=== PATIENT | female | born 2000 | race African-American/Black ===

== ENCOUNTER 2024-04-24 18:48 | Emergency (ER) | payer OTHER, SELFPAY ==
[2024-04-24 19:17] VITALS: BP 137/44; PULSE 83; RESP 16; TEMP 37.3; O2SAT 97; BMI 28.8
--- NOTE | 2024-04-24 19:25 | ED.GENADULT ---
HPI - General Adult General Chief complaint: Skin/Abscess/Foreign Body Stated complaint: left armpit abscess Time Seen by Provider: 04/24/24 23:18 Source: patient Mode of arrival: ambulatory Limitations: no limitations History of Present Illness ED Provider: ABHISHEK SULLIVAN narrative: 24 yo female with no sig PMH here with c/o L axillary pain since Wednesday. No fevers but has headache. She denies prior hx of boils or MRSA. She states it hurts to move the arm. She has not tried to drain it. She has not been on antibiotics. This has never happened to her before. MD complaint: abscess Onset (ago): day(s) (3) Location: left and upper extremity Radiation: non-radiation Severity: severe Quality: aching Pain Consistency: constant Relieving factors: immobilization Exacerbating factors: movement Associated symptoms: headaches Treatments prior to arrival: none Related Data Previous Rx's ?Medication ?Instructions ?Recorded cephalexin 500 mg capsule 500 mg PO QID 7 days #28 caps 04/25/24 cyclobenzaprine 10 mg tablet 10 mg PO TID PRN muscle spasm #20 04/25/24 tabs doxycycline hyclate 100 mg capsule 100 mg PO BID 7 days #14 caps 04/25/24 ibuprofen 600 mg tablet 600 mg PO Q6H PRN pain #30 tabs 04/25/24 Allergies Allergy/AdvReac Type Severity Reaction Status Date / Time No Known Allergies Allergy Verified 04/24/24 19:25 Review of Systems Review of Systems: Constitutional : No Fever, No Chills ENT/Mouth : No sore throat, No Rhinorrhea Eyes: No Eye Pain, No Swelling, No Redness Cardiovascular : No Chest Pain, No SOB Respiratory : No Cough, No Sputum Gastrointestinal : No Nausea, No Vomiting, No Diarrhea, No abdominal Pain Genitourinary : No Dysuria, No Hematuria Musculoskeletal : No joint pain, No Myalgias, No Joint Swelling Skin : No Skin abscess, no skin rash Neuro : No Weakness, No Numbness, pos Headache Psych : No Anxiety, No Depression Heme/Lymph: No Bruising, No Bleeding,No Lymphadenopathy Endocrine : No Polyuria, No Polydipsia All other systems reviewed and are negative PMFSH Past Medical History Attestation statement: The following information was validated with the patient. Medical History (Updated 04/25/24 @ 00:36 by Nathalia Ryan DO) No pertinent past medical history Social History Social History (Updated 04/24/24 @ 23:58 by Nathalia Ryan DO) Patient Tobacco Use Status: Never used Tobacco Advance Directives: No Advance Directives Information Provided: No Do you have a plan to hurt others: No Plan Physical Exam ED Vital Signs: Vital Signs - 24 hr 04/24/24 19:17 Temperature 99.1 F Pulse Rate 83 Respiratory Rate 16 Blood Pressure 137/44 L Pulse Oximetry 97 Oxygen Delivery Method Room Air BMI result Body Mass Index 28.8 Appearance: Alert. Oriented X3. No acute distress. Eyes: Pupils equal, round and reactive to light. ENT: Pharynx normal. Neck: Normal inspection. Neck supple. CVS: Normal heart rate and rhythm. Pulses normal. Respiratory: No respiratory distress. Breath sounds normal. Abdomen: Soft and nontender. Skin: Skin warm and dry. Normal skin color. Normal skin turgor. Extremities: No lower extremity edema. L axilla 6cm large fluctuant abscess Neuro: Oriented X 3. No motor deficit. No sensory deficit. Course Course Course Narrative: RME performed by Sunni Lyle PA-C. Patient is a 24 year old assigned female at presenting to the emergency department with a left axillary abscess. Patient states over the last few days she has had a left armpit abscess that is getting worse. Detailed physical exam and review of systems are deferred to the garden labourer. Labs ordered. Patient placed back in the waiting room pending room availability and results. Medications Administered Discontinued Medications Generic Name Dose Route Start Last Admin Trade Name Freq PRN Reason Stop Dose Admin Cephalexin HCl 500 mg 04/24/24 23:35 04/24/24 23:56 Cephalexin 500 Mg Capsule PO 04/24/24 23:36 500 mg ONCE ONE Administration Doxycycline Monohydrate 100 mg 04/24/24 23:35 04/25/24 00:00 Doxycycline Monohydrate 100 Mg Capsule PO 04/24/24 23:36 100 mg ONCE ONE Administration Lidocaine HCl 5 ml 04/24/24 23:21 04/24/24 23:33 Lidocaine Hcl 1 % Mpf 5 Ml Vial SUBCUT 04/24/24 23:22 5 ml ONCE ONE Administration Lidocaine HCl 1 appl 04/24/24 23:35 04/24/24 23:56 Lidocaine 4 % Cream Kit TOPICAL 04/24/24 23:36 1 appl ONCE ONE Administration Protocol Procedures Abscess I/D Site: upper extremity and other (axilla ) Side (if applicable): left Local Anesthetic: lidocaine 1% Amount of anesthesia used (mL): 5 Technique: incised with blade Amount of fluid expressed (mL): 8 Sent for culture/gram staining?: No Irrigation: Yes Packing used?: [email or web address] Medical Decision Making Medical Decision Making [facility] Narrative: 24 yo female with no sig PMH here with c/o L axillary abscess at this time will need basic labs, I+D of abscess and start on oral antibiotics. She denies hx of diabetes and is overall not toxic. Differential Diagnosis Differential Diagnoses: The differential diagnosis associated with the presentation includes abscess Admission/Observation Consideration of admission/observation: Escalation of care including admission/observation considered VS stable, able to tolerate PO, can be DC home with PO abx Lab Data [facility] Lab Attestation statement: I reviewed the patient's lab results. 04/24/24 19:39 04/24/24 19:39 Labs: Lab Results 04/24/24 Range/Units 19:39 WBC 9.5 (4.8-10.8) X10*3/uL RBC 4.54 (4.20-5.50) X10*6/uL Hgb 11.2 L (12.0-16.0) g/dl Hct 34.6 L (37.0-47.0) % MCV 76.2 L (80.0-98.0) fL MCH 24.7 L (27.0-33.0) pg MCHC 32.4 (31.0-35.0) g/dl RDW 13.5 (11.0-16.0) % Plt Count 312 (160-400) X10*3/uL MPV 10.2 (9.4-12.3) fL Immature Gran % (Auto) 0.2 (0.0-0.4) % Neut % (Auto) 59.1 (45-73) % Lymph % (Auto) 33.0 (20-40) % [place] % (Auto) 5.7 (2-11) % Eos % (Auto) 1.4 (0-4) % Baso % (Auto) 0.6 (0-2) % Lymph # (Auto) 3.1 (1.2-4.9) X10*3/uL [place] # (Auto) 0.5 (0.1-1.2) X10*3/uL Eos # (Auto) 0.1 (0.0-0.4) X10*3/uL Baso # (Auto) 0.1 (0.0-0.2) X10*3/uL Abs Immat Gran (auto) 0.02 (0.00-0.03) X10*3/uL Absolute Neuts (auto) 5.6 (2.0-8.3) x10*3/uL Absolute Nucleated RBC 0.000 (0.0-0.012) X10*3/uL Nucleated RBC % (auto) 0.0 (0.0-0.2) /100WBC ESR 25 H (0-20) MM/HR Sodium 139 (135-145) mmol/L Potassium 3.7 (3.3-5.1) mmol/L Chloride 105 (96-108) mmol/L Carbon Dioxide 28 (22-29) mmol/L Anion Gap 10 L (12-20) BUN 8 L (9-16) mg/dL Creatinine 0.85 (0.5-1.4) mg/dL Estim Creat Clear Calc 100.2 Estimated GFR > 60 Random Glucose 116 H (60-115) mg/dL Calcium 9.4 (8.4-10.2) mg/dL Magnesium 2.1 (1.6-2.6) mg/dL Total Bilirubin 0.4 (0.0-1.0) mg/dL AST 20 (5-31) U/L ALT 17 (0-31) U/L Alkaline Phosphatase 56 (39-117) U/L C-Reactive Protein 2.49 H (< or = 0.50) mg/dL Total Protein 8.1 H (6.5-8.0) g/dL Albumin 4.3 (3.5-5.0) g/dL Prescription Management I considered prescription management with: Pain Medication and Antibiotic Discharge Plan Discharge Clinical Impression: Abscess of skin or subcutaneous tissue Qualifiers: Site of cutaneous abscess: extremity Site of cutaneous abscess of extremity: axilla Laterality: left Qualified Code(s): L02.412 - Cutaneous abscess of left axilla Patient Disposition: Home, Self-Care Instructions: Abscess (ED), Abscess Incision and Drainage (DC) Additional Instructions: return for worsening pain, bleeding, fevers, or any other concerns packing out in 48 hours it is okay if it falls out early please return for any worsening symptoms - change dressing every day Prescriptions: New cyclobenzaprine 10 mg tablet 10 mg PO TID PRN (Reason: muscle spasm) Qty: 20 0RF doxycycline hyclate 100 mg capsule 100 mg PO BID 7 Days Qty: 14 0RF cephalexin 500 mg capsule 500 mg PO QID 7 Days Qty: 28 0RF ibuprofen 600 mg tablet 600 mg PO Q6H PRN (Reason: pain) Qty: 30 0RF Stand Alone Forms: Work/School Release Print Language: Hungarian
[2024-04-24 19:42] LABS: MANUAL DIFF FLAG NO
[2024-04-24 19:44] LABS: Basophils Absolute Auto 0.1 X10*3/uL (0.0-0.2); Basophils Percent Auto 0.6 % (0-2); Eosinophils Absolute Auto 0.1 X10*3/uL (0.0-0.4); Eosinophils Percent Auto 1.4 % (0-4); Hematocrit 34.6 % (37.0-47.0); Hemoglobin 11.2 g/dl (12.0-16.0); Imm Gran Abs Auto 0.02 X10*3/uL (0.00-0.03); Imm Gran Pct Auto 0.2 % (0.0-0.4); Lymphocytes Absolute Auto 3.1 X10*3/uL (1.2-4.9); Mean Corpuscular HGB Conc 32.4 g/dl (31.0-35.0); Mean Corpuscular Hemoglobin 24.7 pg (27.0-33.0); Mean Corpuscular Volume 76.2 fL (80.0-98.0); Mean Platelet Volume 10.2 fL (9.4-12.3); Monocytes Absolute Auto 0.5 X10*3/uL (0.1-1.2); Monocytes Percent Auto 5.7 % (2-11); Neutrophils Absolute Auto 5.6 x10*3/uL (2.0-8.3); Neutrophils Percent Auto 59.1 % (45-73); Platelet Count 312 X10*3/uL (160-400); Red Blood Count 4.54 X10*6/uL (4.20-5.50); Red Cell Distribution Width 13.5 % (11.0-16.0); White Blood Count 9.5 X10*3/uL (4.8-10.8)
[2024-04-24 20:09] LABS: Albumin Level 4.3 g/dL (3.5-5.0); Alkaline Phosphatase 56 U/L (39-117); Anion Gap 10 (12-20); Aspartate Amino Transferase 20 U/L (5-31); Bilirubin Total 0.4 mg/dL (0.0-1.0); Blood Urea Nitrogen 8 mg/dL (9-16); C Reactive Protein 2.49 mg/dL (< or = 0.50); Calcium 9.4 mg/dL (8.4-10.2); Carbon Dioxide 28 mmol/L (22-29); Chloride 105 mmol/L (96-108); Creatinine Clr Calc Pharmacy 100.2; Estimated Glomerular Filt Rate > 60; Glucose Random 116 mg/dL (60-115); Magnesium 2.1 mg/dL (1.6-2.6); Potassium 3.7 mmol/L (3.3-5.1); Sodium 139 mmol/L (135-145); Total Protein 8.1 g/dL (6.5-8.0)
[2024-04-24 20:35] LABS: Erythrocyte Sedimentation Rate 25 MM/HR (0-20)
[2024-04-24 20:43] LABS: Alanine Aminotransferase 17 U/L (0-31)
[2024-04-24] MEDS: Lidocaine HCl 1 % MPF 5 ML VIAL SUBCUT (23:33)
[2024-04-24] MEDS: Lidocaine 4 % Cream KIT 1 APPL TOPICAL (23:56)
[2024-04-24] MEDS: cephALEXin 500 MG CAPSULE PO (23:56)
[2024-04-25] MEDS: Doxycycline Monohydrate 100 MG CAPSULE PO
[2024-04-25 01:32] VITALS: BP 122/97; PULSE 81; RESP 16; TEMP 36.9; O2SAT 100
== END 2024-04-25 01:36 | disposition home or self-care (01) ==
PROVIDERS: Physician Assistant Medical; Emergency Provider Emergency Medicine; PCP Nurse Practitioner Family
DX: L02.412 Cutaneous abscess of left axilla (principal); R51.9 Headache, unspecified
CPT/HCPCS: 10060; 36415; 80053; 83735; 85025; 85652; 86140; 99282; 99284

== ENCOUNTER 2024-05-12 11:07 | Outpatient (AMB) | payer OTHER, SELFPAY ==
--- NOTE | 2024-05-12 11:11 | A.OFFVIS_ITS ---
Vital Signs 05/12/24 11:16 Height 5 ft 6 in Weight 169 lb BMI 27.3 BP 134/76 Blood Pressure Location Rt brachial Position Sitting Pulse 82 Intake Visit Reasons: Abscess Axilla Intake Note: Patient referred after ER visit on 04-24-2024 for abscess on left axilla. Present since April. Did not finish Doxycycline and Cephalexin course. Patient c/o: getting better. Sales Representative Printing Supplies Required: No Accompanied by: Self / Same As Patient Allergies No Known Allergies Allergy (Verified 05/12/24 11:16) HPI Comments Details: Patient presents because of left axillary swelling times roughly 2 weeks time. She was given antibiotics and presents here for further evaluation. She has never had this before. Chart was reviewed and patient evaluated. Patient has no significant past medical or surgical history. [facility] Medical History (Updated 04/26/24 @ 00:01 by Fernando Loyd) No pertinent past medical history Social History (Updated 04/24/24 @ 23:58 by Nathalia Ryan DO) Patient Tobacco Use Status: Never used Tobacco Physical Exam Vital Signs: Last Vital Signs Pulse 82 05/12/24 11:16 BP 134/76 05/12/24 11:16 BMI result Body Mass Index 27.3 Extrem Other: Patient was a left axillary swelling/mass. No evidence of overlying erythema. Not tender to palpation. No fluctuance Under sterile technique, this was aspirated and nothing was retrieved. Bandage applied. Assessment & Plan Assessment & Plan (1) Left axillary swelling: Code(s): M79.89 - Other specified soft tissue disorders Category: Surgical Plan At present, we will treat the patient conservatively. She has complete her antibiotic course along with warm compresses and will see me in a few days' time for follow-up or p.r.n.. All questions answered. Plan as noted above. Medications: Discontinued cephalexin Discontinued Reason: Patient no longer taking 500 mg PO QID 7 days 28 caps 0RF doxycycline hyclate Discontinued Reason: Patient no longer taking 100 mg PO BID 7 days 14 caps 0RF Coding Level of Care Code New Pt Level 4 (11402) Diagnoses Left axillary swelling M79.89
[2024-05-12 11:16] VITALS: BP 134/76; PULSE 82; BMI 27.3
== END 2024-05-12 11:23 | disposition home or self-care (01) ==
PROVIDERS: PCP Nurse Practitioner Family; Visit Provider Surgery
DX: M79.89 Other specified soft tissue disorders (principal)
CPT/HCPCS: 99204

== ENCOUNTER → 2024-05-12 11:07 | Outpatient (BNVA) | payer OTHER, SELFPAY | PROVIDERS: PCP Nurse Practitioner Family; Visit Provider Surgery ==

== ENCOUNTER 2024-05-16 10:01 | Outpatient (AMB) | payer OTHER, SELFPAY ==
--- NOTE | 2024-05-16 10:23 | A.OFFVIS_ITS ---
Vital Signs 05/16/24 10:24 Weight 169 lb BP 116/72 Blood Pressure Location Rt brachial Position Sitting Pulse 72 Intake Visit Reasons: s/p Abscess Axilla drainage Intake Note: Patient here for follow up Lt axilla abscess. Reports healing well. Patient c/o: tender to touch. Denies oozing. Departmental Buyer Required: No Accompanied by: Self / Same As Patient Allergies No Known Allergies Allergy (Verified 05/16/24 10:24) Medication List - Last Reconciled 05/16/24 by Nolan Toscano MD cyclobenzaprine 10 mg PO TID PRN ibuprofen 600 mg PO Q6H PRN HPI Comments Details: Patient presents for follow-up. She has had marked improvement of left axillary symptoms. [facility] Medical History (Updated 04/26/24 @ 00:01 by Fernando Loyd) No pertinent past medical history Social History (Updated 04/24/24 @ 23:58 by Nathalia Ryan DO) Patient Tobacco Use Status: Never used Tobacco Physical Exam Vital Signs: Last Vital Signs Pulse 72 05/16/24 10:24 BP 116/72 05/16/24 10:24 Extrem Other: Left axillary fullness is essentially status quo. The areas nontender. No evidence of any erythema or fluctuance. This is a reminder last week this underwent FNA which was a dry tap no evidence of any abscess on aspiration. Assessment & Plan Assessment & Plan (1) Left axillary swelling: Code(s): M79.89 - Other specified soft tissue disorders Category: Surgical Plan Current plan treat the patient conservatively. She is continue local wound care in the form of warm compresses. She will see me in a few weeks' time for follow-up or p.r.n.. All questions answered. Coding Level of Care Code Est Pt Level 4 (76396) Diagnoses Left axillary swelling M79.89
[2024-05-16 10:24] VITALS: BP 116/72; PULSE 72
== END 2024-05-16 10:31 | disposition home or self-care (01) ==
PROVIDERS: PCP Nurse Practitioner Family; Visit Provider Surgery
DX: M79.89 Other specified soft tissue disorders (principal)
CPT/HCPCS: 99214

== ENCOUNTER → 2024-05-16 10:01 | Outpatient (BNVA) | payer OTHER, SELFPAY | PROVIDERS: PCP Nurse Practitioner Family; Visit Provider Surgery ==